=== PATIENT | female | born 1970 | race Caucasian/White ===

== ENCOUNTER 2017-04-30 01:28 | Emergency (ER) | payer OTHER ==
[2017-04-30 01:30] VITALS: O2SAT 100
[2017-04-30] MEDS ORDERED: IOHEXOL 350 MG/ML 10 ML VIAL (for RAD DIAG) IVCONTRAST ONE (01:43)
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
[2017-04-30 02:05] LABS: AUTOMATED NEUTROPHIL # 6.4 TH/MM3 (1.8-7.7); BASOPHIL # 0.1 TH/MM3 (0-0.2); BASOPHIL % 0.9 % (0.0-2.0); EOSINOPHIL # 0.1 TH/MM3 (0-0.4); EOSINOPHIL % 1.2 % (0.0-4.0); HEMATOCRIT 45.6 % (35.0-46.0); HEMOGLOBIN 15.4 GM/DL (11.6-15.3); LYMPH % 36.6 % (9.0-44.0); LYMPHOCYTE # 4.3 TH/MM3 (1.0-4.8); MEAN CORPUSCULAR HEMOGLOBIN 32.4 PG (27.0-34.0); MEAN CORPUSCULAR HGB CONC 33.8 % (32.0-36.0); MEAN PLATELET VOLUME 7.3 FL (7.0-11.0); MONO % 7.6 % (0.0-8.0); MONOCYTE # 0.9 TH/MM3 (0-0.9); NEUT % 53.7 % (16.0-70.0); PLATELET COUNT 381 TH/MM3 (150-450); RED BLOOD COUNT 4.75 MIL/MM3 (4.00-5.30); RED CELL DISTRIBUTION WIDTH 13.7 % (11.6-17.2); WHITE BLOOD COUNT 11.9 TH/MM3 (4.0-11.0)
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
[2017-04-30 02:20] VITALS: O2SAT 100
[2017-04-30 02:22] VITALS: BP 141/81; PULSE 118; RESP 16; O2SAT 100
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
[2017-04-30 02:37] LABS: INTERNATIONAL NORMALIZED RATIO 0.9 RATIO; PROTHROMBIN TIME - PATIENT 9.3 SEC (9.8-11.6)
[2017-04-30] MEDS ORDERED: LIDOCAINE 1%/EPINEPHrine 1:100,000 SOLN 20 ML VIAL INFIL ONE (02:45)
[2017-04-30] MEDS ORDERED: ONDANSETRON HCL 4 MG/2 ML VIAL IV PUSH ONE (02:45)
[2017-04-30] MEDS ORDERED: MORPHINE SULFATE 2 MG/ML INJ IV PUSH ONE (02:45)
[2017-04-30] MEDS ORDERED: LIDOCAINE HCL 1% 20 ML VIAL INFIL ONE (03:00)
[2017-04-30] MEDS ORDERED: BUPIVACAINE HCL PF 0.5% 10 ML VIAL INFIL ONE (03:00)
[2017-04-30] MEDS ORDERED: diphenhydrAMINE HCL 50 MG/ML VIAL ONE (03:45)
[2017-04-30] MEDS ORDERED: HYDR-3516 PO (03:46)
[2017-04-30] MEDS ORDERED: diphenhydrAMINE HCL 50 MG/ML VIAL IV PUSH ONE (04:15)
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
== END 2017-04-30 04:25 | disposition home or self-care (01) ==
LOC: NEPI 01:28 → NEPE 04:25
DX: S01.511A Laceration without foreign body of lip, initial encounter (principal); S09.90XA Unspecified injury of head, initial encounter; M51.36 Other intervertebral disc degeneration, lumbar region; M25.561 Pain in right knee; J45.909 Unspecified asthma, uncomplicated; R00.0 Tachycardia, unspecified; F17.200 Nicotine dependence, unspecified, uncomplicated; V43.63XA Car passenger injured in collision with pick-up truck in traffic accident, initial encounter
CPT/HCPCS: 12052; 70450; 70486; 71010; 71260; 72125; 72129; 72132; 72170; 73560; 74177; 80307; 82435; 82565; 82947; 84132; 84295; 84520; 84702; 85025; 85384; 85610; 85730; 86850; 86900; 86901; 86920; 96374; 96375; 99285; J1200; J2270; J2405; Q9967

== ENCOUNTER 2017-07-06 08:37 | Inpatient (IN) | payer OTHER ==
[2017-07-06] VITALS (20 sets, daily range): BP systolic 115–145; BP diastolic 64–103; PULSE 87–121; RESP 16–26; TEMP 96.8–98.6; O2SAT 93–100
[~2017-07-06] VITALS: Ht 157.5 cm; Wt 87.0 kg
[~2017-07-06 08:37] MED LIST: HYDR-3516 PO
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
[2017-07-06] MEDS ORDERED: PROPOFOL 500 MG/50 ML INJ 50 ML ONE (09:21)
[2017-07-06 09:34] LABS: AUTOMATED NEUTROPHIL # 6.3 TH/MM3 (1.8-7.7); BASOPHIL % 0.4 % (0.0-2.0); EOSINOPHIL # 0.1 TH/MM3 (0-0.4); EOSINOPHIL % 0.9 % (0.0-4.0); HEMATOCRIT 42.5 % (35.0-46.0); HEMOGLOBIN 14.7 GM/DL (11.6-15.3); LYMPH % 26.3 % (9.0-44.0); LYMPHOCYTE # 2.6 TH/MM3 (1.0-4.8); MEAN CORPUSCULAR HEMOGLOBIN 32.8 PG (27.0-34.0); MEAN CORPUSCULAR HGB CONC 34.6 % (32.0-36.0); MONO % 8.1 % (0.0-8.0); MONOCYTE # 0.8 TH/MM3 (0-0.9); NEUT % 64.3 % (16.0-70.0); PLATELET COUNT 358 TH/MM3 (150-450); RED BLOOD COUNT 4.47 MIL/MM3 (4.00-5.30); RED CELL DISTRIBUTION WIDTH 13.8 % (11.6-17.2); WHITE BLOOD COUNT 9.8 TH/MM3 (4.0-11.0)
[2017-07-06] MEDS: SODIUM CHLORIDE 0.9% FLUSH 10 ML FLUSH IV FLUSH PRN (09:35)
[2017-07-06] MEDS: PROPOFOL 1000 MG/100 ML INJ 100 ML IV PRN ×4 (09:36→20:04)
[2017-07-06 09:42] LABS: BILIRUBIN, URINE NEG (NEG); BLOOD, URINE NEG (NEG); GLUCOSE,URINE NEG (NEG); KETONE, URINE NEG (NEG); NITRITE,URINE NEG (NEG); PH, URINE 5.5 (5.0-8.5); URINE COLOR LIGHT-YELLOW (YELLW/STRAW); URINE LEUKOCYTE ESTERASE NEG (NEG)
[2017-07-06 09:45] LABS: BACTERIA, URINE OCC /hpf
--- NOTE | 2017-07-06 09:48 | RADRPT ---
EXAM DATE/TIME: 07/06/2017 09:23 [facility] COMPARISON: CHEST SINGLE AP, April 30, 2017, 1:32. INDICATIONS : Post intubation. MEDICAL HISTORY : None. SURGICAL HISTORY : None. ENCOUNTER: Initial ACUITY: 1 day PAIN SCORE: Non-responsive. LOCATION: Bilateral chest FINDINGS: A single view of the chest demonstrates the lungs to be symmetrically aerated without evidence of mas s, infiltrate or effusion. There is an endotracheal tube and NG tube in place. There is no evidence of pneumothorax. The endotracheal tube appears to be in good position with the tip at the level of th e thoracic aortic arch. The cardiomediastinal contours are unremarkable. Osseous structures are inta ct. CONCLUSION: 1. The endotracheal tube and NG tube appear to be in good position. 2. The lungs are grossly clear. 3. No pneumothorax. Momo Sherman MD on July 06, 2017 at 9:46 Board Certified Radiologist. This report was verified electronically.
[2017-07-06 09:50] LABS: ALBUMIN 4.6 GM/DL (3.4-5.0); AST (GOT) 29 U/L (15-37); BICARBONATE 22.2 MEQ/L (21.0-32.0); BLOOD UREA NITROGEN 8 MG/DL (7-18); CALCIUM 8.1 MG/DL (8.5-10.1); CHLORIDE 106 MEQ/L (98-107); CREATININE 0.91 MG/DL (0.50-1.00); GLOMERULAR FILTRATION RATE 66 ML/MIN (>89); GLUCOSE,RANDOM 64 MG/DL (74-106); SODIUM (NA) 142 MEQ/L (136-145)
[2017-07-06 09:51] LABS: ALT (GPT) 29 U/L (10-53)
[2017-07-06 09:55] LABS: ALKALINE PHOSPHATASE 96 U/L (45-117); TOTAL BILIRUBIN ADULT 0.7 MG/DL (0.2-1.0); TOTAL PROTEIN 7.7 GM/DL (6.4-8.2); TROPONIN I LESS THAN 0.02 NG/ML (0.02-0.05)
--- NOTE | 2017-07-06 10:25 | RADRPT ---
EXAM DATE/TIME: 07/06/2017 10:15 [place] COMPARISON: CT BRAIN W/O CONTRAST, April 30, 2017, 1:38. INDICATIONS : Altered mental status. RADIATION DOSE: 56.35 CTDIvol (mGy) MEDICAL HISTORY : Non-responsive. SURGICAL HISTORY : Non-responsive. ENCOUNTER: Initial ACUITY: 1 day PAIN SCALE: Non-responsive LOCATION: Bilateral cranial TECHNIQUE: Multiple contiguous axial images were obtained of the head. Using automated exposure control and adj ustment of the mA and/or kV according to patient size, radiation dose was kept as low as reasonably a chievable to obtain optimal diagnostic quality images. DICOM format image data is available electro nically for review and comparison. FINDINGS: CEREBRUM: The ventricles are normal for age. No evidence of midline shift, mass lesion, hemorrhage or acute in farction. No extra-axial fluid collections are seen. POSTERIOR FOSSA: The cerebellum and brainstem are intact. The 4th ventricle is midline. The cerebellopontine angle i s unremarkable. EXTRACRANIAL: The visualized portion of the orbits is intact. SKULL: The calvaria is intact. No evidence of skull fracture. CONCLUSION: No acute disease. Silvestre Quinteros Jr., MD on July 06, 2017 at 10:22 Board Certified Radiologist. This report was verified electronically.
[2017-07-06] MEDS ORDERED: MAGNESIUM HYDROXIDE SUSP 30 ML CUP PO PRN (12:00)
[2017-07-06] MEDS ORDERED: SENNOSIDES 8.6 MG TAB PO PRN (12:00)
[2017-07-06] MEDS ORDERED: BISACODYL 10 MG SUPP RECTAL PRN (12:00)
[2017-07-06] MEDS: RESP: ALBUTEROL 2.5 MG/IPRATROPIUM 0.5 MG NEB (SCH) INH ×3 (12:00→21:16)
[2017-07-06] MEDS ORDERED: MISCELLANEOUS NURSING INFORMATION XX SCH (12:00)
[2017-07-06] MEDS ORDERED: CHLORHEXIDINE GLUCONATE 2 % 1 PACK (2 CLOTHS) TOP PRN (12:00)
[2017-07-06] MEDS ORDERED: LACTULOSE SYRUP 20 GM/30 ML CUP PO PRN (12:00)
[2017-07-06] MEDS ORDERED: SODIUM PHOSPHATE INJ 30 MMOL in SODIUM CHLOR 0.9% 250 ML INJ 240 ML IV PRN (12:15)
[2017-07-06] MEDS: INSULIN NovoLIN REGULAR SUPPLEMENTAL SCALE SQ SCH ×4 (12:15→22:56)
[2017-07-06] MEDS ORDERED: SODIUM CHLOR 0.9% 1000 ML INJ 1,000 ML IV ONE (12:15)
[2017-07-06] MEDS ORDERED: POTASSIUM PHOSPHATE MONOBASIC 500 MG TAB PO PRN (12:15)
[2017-07-06] MEDS ORDERED: MAGNESIUM SULFATE INJ 4 GM in SODIUM CHLORIDE 0.9% INJ 92 ML IV PRN (12:15)
[2017-07-06] MEDS ORDERED: POTASSIUM CHLOR 40 MEQ PREMIX 100 ML IV PRN ×2 (12:15)
[2017-07-06] MEDS ORDERED: MAGNESIUM SULFATE INJ 2 GM in SODIUM CHLORIDE 0.9% INJ 96 ML IV PRN (12:15)
[2017-07-06] MEDS ORDERED: DEXTROSE 50% IN WATER 50 ML VIAL(D50) IV PUSH PRN (12:15)
[2017-07-06] MEDS ORDERED: MAGNESIUM OXIDE 400 MG TAB PO PRN (12:15)
[2017-07-06] MEDS ORDERED: POTASSIUM CHLOR 20 MEQ PREMIX 100 ML IV PRN (12:15)
[2017-07-06] MEDS ORDERED: GLUCAGON 1 MG/ML VIAL OTHER PRN (12:15)
[2017-07-06] MEDS ORDERED: POTASSIUM PHOSPHATE MONOBASIC 500 MG TAB PO/TUBE PRN (12:15)
[2017-07-06] MEDS ORDERED: POTASSIUM PHOSPHATE INJ 30 MMOL in SODIUM CHLOR 0.9% 250 ML INJ 250 ML IV PRN (12:15)
--- NOTE | 2017-07-06 12:56 | MH ---
cc: Jaki Mendoza MD DATE OF ADMISSION: 07/06/2017 HISTORY: The patient is a 46-year-old female with a past medical history of bronchial asthma who presented to [facility] ED via EMS for altered mental status. According to the ED records, the patient has been talking about suicide for the last three days and has been drinking a lot. She fell off the boat yesterday and today her significant other found her unresponsive. She was given Narcan by EMS without any effect. The patient was found hypoglycemic and was given D50. She was barely responsive to painful stimuli and she was subsequently intubated in the field for airway protection. A CT scan of the brain in the ED showed no acute disease. Her urine drug screen was positive for benzodiazepines, cocaine and cannabinoids. In addition, her alcohol level was 173. ABG post-intubation showed a pH of 7.38, CO2 39, PaO2 362, bicarb 23 and sats of 96%. A chest x-ray showed ET tube above the rodolfo, otherwise no evidence of any acute cardiopulmonary disease. When seen in the ED, she was on Diprivan infusion for sedation. PAST MEDICAL HISTORY: Bronchial asthma. PAST SURGICAL HISTORY: 1. Nasal surgery. 2. Previous tubal ligation. ALLERGIES: NO KNOWN DRUG ALLERGIES. SOCIAL HISTORY: The patient drinks heavily, active smoker. In addition, she uses cocaine and cannabinoids. FAMILY HISTORY: Not contributing to present illness. MEDICATIONS AT HOME: Prilosec as needed per significant other. REVIEW OF SYSTEMS: As per HPI. The rest of the review of systems unobtainable. PHYSICAL EXAM: This is a 46-year-old female intubated for airway protection. VITAL SIGNS: Temperature of 96.8, pulse 105, blood pressure 121/69, saturation 96%. VENT SETTING: Assist control rate of 18, tidal volume 500, PEEP of 5, FIO2 45%. HEENT: Atraumatic, normocephalic. Pupils equal, round, reactive to light and accommodation. Extraocular muscles intact. Conjunctivae pink. Nonicteric sclerae. Oral mucosa within normal. NECK: Supple. No JVD, adenopathy or thyromegaly. Trachea in the midline. CARDIOVASCULAR: Regular rate and rhythm. Normal S1 and S2. No murmurs, rubs or gallops noted. PULMONARY: Bilateral equal entry. No rales or wheezing. ABDOMEN: Soft, nontender. No distention. Positive bowel sounds. EXTREMITIES: No cyanosis, clubbing or edema. NEURO: Intubated and sedated. LABORATORY DATA: Sodium 142, potassium 3.4, chloride 106, CO2 is 22, BUN 8, creatinine 0.91 and glucose 64. Calcium 8.1. LFTs within normal. Ammonia level 23. Total CK 518. Troponin less than 0.02. WBC 9.8, hemoglobin 14.7, hematocrit 42, platelet count 358. INR 1, PT 10, PTT 23.6. Urine drug screen positive for cocaine, cannabinoids, benzodiazepines. Alcohol level 173. RADIOGRAPHIC STUDIES: CT of the brain negative for acute disease. Chest x-ray: ET tube above the rodolfo. No evidence of any acute cardiopulmonary disease. IMPRESSION: 1. Vent dependent respiratory failure. 2. Altered mental status. 3. Polysubstance abuse. 4. ETOH abuse. 5. Status post hypoglycemic episode. 6. Hypokalemia. 7. Elevated CKs. 8. Questionable suicide attempt. RECOMMENDATIONS: 1. Continue with Diprivan infusion for sedation and daily sedation vacation. 2. Monitor neuro status closely. 3. We will place on thiamine, multivitamins and folic acid. 4. We will consult psychiatry service once extubated. 5. Her urine drug screen in the ER was positive for cannabinoids, cocaine and benzodiazepines. 6. CT scan of the brain negative for acute disease. 7. Continue with vent support and maintain sats above 92%. 8. Bronchodilators in the form of DuoNeb q. 6. 9. We will initiate ____ and start spontaneous breathing trials in the a.m. with sedation vacation. 10. Monitor heart rate and blood pressure closely and maintain a MAP greater than 65 mmHg. 11. Monitor renal function I's and O's and will place on electrolyte replacement protocol. She will need potassium replacement. 12. Place on IV fluids D5 NS at 100 mL/hr and will give 1 L bolus of normal saline. 13. Monitor for signs of infection which includes fever and WBC. We will hold off on antibiotics at this time as there is no evidence of any infectious process. 14. Sliding scale insulin with Accu-Chek if needed for glycemic control. 15. Monitor CBC. 16. Place on Pepcid for GI prophylaxis and start nutrition support within 24 hours if remains intubated. 17. GI prophylaxis with Pepcid and DVT prophylaxis with SCDs and heparin Sub-Q. 18. Further recommendations will be based on the hospital course. MD MAYLIN Johnson/DL/ , 12:14 PM , 12:40 PM
[2017-07-06] MEDS: HEPARIN SODIUM - SQ 10,000 UNITS/ML VIAL SQ SCH ×2 (13:49→22:58)
[2017-07-06] MEDS: THIAMINE HCL 100 MG TAB PO SCH (13:50)
[2017-07-06] MEDS: MULTIVITAMIN TAB PO SCH (13:50)
[2017-07-06] MEDS: FOLIC ACID 1 MG TAB PO SCH (13:50)
[2017-07-06] MEDS: DEXT 5%-NACL 0.9% 1000 ML INJ 1,000 ML IV SCH (13:51)
[2017-07-06] MEDS: POTASSIUM CHLORIDE 25 MEQ EFFERVESCENT TAB PO PRN (16:09)
[2017-07-06] MEDS ORDERED: fentaNYL DRIP 250 ML IV PRN (17:30)
[2017-07-06] MEDS: CHLORHEXIDINE GLUCONATE 2 % 1 PACK (2 CLOTHS) TOP SCH (19:54)
[2017-07-06] MEDS: DOCUSATE SODIUM 50 MG/SENNA 8.6 MG TAB PO SCH (20:04)
[2017-07-06] MEDS: FAMOTIDINE 20 MG/2 ML VIAL IV PUSH SCH (20:05)
[2017-07-07] VITALS (27 sets, daily range): BP systolic 114–168; BP diastolic 63–89; PULSE 87–113; RESP 21–46; TEMP 98.3–99.1; O2SAT 91–100
[2017-07-07] MEDS: PROPOFOL 1000 MG/100 ML INJ 100 ML IV PRN ×3 (00:09→09:41)
[2017-07-07] MEDS: INSULIN NovoLIN REGULAR SUPPLEMENTAL SCALE SQ SCH ×5 (03:08→20:15)
[2017-07-07] MEDS: RESP: ALBUTEROL 2.5 MG/IPRATROPIUM 0.5 MG NEB (SCH) INH ×4 (03:39→19:34)
[2017-07-07 04:25] LABS: AUTOMATED NEUTROPHIL # 9.9 TH/MM3 (1.8-7.7); BASOPHIL % 0.2 % (0.0-2.0); EOSINOPHIL # 0.1 TH/MM3 (0-0.4); EOSINOPHIL % 0.7 % (0.0-4.0); HEMATOCRIT 37.1 % (35.0-46.0); HEMOGLOBIN 12.7 GM/DL (11.6-15.3); LYMPH % 14.4 % (9.0-44.0); LYMPHOCYTE # 1.8 TH/MM3 (1.0-4.8); MEAN CORPUSCULAR HEMOGLOBIN 32.4 PG (27.0-34.0); MEAN CORPUSCULAR HGB CONC 34.1 % (32.0-36.0); MEAN PLATELET VOLUME 6.9 FL (7.0-11.0); MONO % 5.1 % (0.0-8.0); MONOCYTE # 0.6 TH/MM3 (0-0.9); NEUT % 79.6 % (16.0-70.0); PLATELET COUNT 284 TH/MM3 (150-450); WHITE BLOOD COUNT 12.4 TH/MM3 (4.0-11.0)
[2017-07-07 04:43] LABS: BICARBONATE 25.5 MEQ/L (21.0-32.0); CALCIUM 7.9 MG/DL (8.5-10.1); CREATININE 0.85 MG/DL (0.50-1.00); MAGNESIUM 1.9 MG/DL (1.5-2.5)
[2017-07-07 04:54] LABS: PHOSPHORUS 2.8 MG/DL (2.5-4.9)
[2017-07-07] MEDS: POTASSIUM CHLOR 20 MEQ PREMIX 100 ML IV PRN (05:11)
--- NOTE | 2017-07-07 07:46 | EKG ---
Date Performed: 07/06/2017 Time Performed: 08:45:11 PTAGE: 46 years EKG: SINUS TACHYCARDIA Diffuse ST-T abnormality, cannot exclude ischemia ABNORMAL ECG NO PREVIOUS TRACING DOCTOR: Armando Daly Interpretating Date/Time 07/07/2017 07:46:02
[2017-07-07] MEDS: FOLIC ACID 1 MG TAB PO SCH (07:48)
[2017-07-07] MEDS: MULTIVITAMIN TAB PO SCH (07:48)
[2017-07-07] MEDS: FAMOTIDINE 20 MG/2 ML VIAL IV PUSH SCH ×2 (07:48→20:34)
[2017-07-07] MEDS: THIAMINE HCL 100 MG TAB PO SCH (07:48)
[2017-07-07] MEDS: DOCUSATE SODIUM 50 MG/SENNA 8.6 MG TAB PO SCH ×2 (07:48→20:34)
--- NOTE | 2017-07-07 08:12 | HHI.CCPN ---
Subjective Remarks/Hospital Course Patient is a 46-year-old female with a past medical history of bronchial asthma who presented to [facility] ED via EMS for altered mental status. According to the ED records, the patient has been talking about suicide for the last three days and has been drinking a lot. She fell off the boat yesterday and today her significant other found her unresponsive. She was given Narcan by EMS without any effect. The patient was found hypoglycemic and was given D50. She was barely responsive to painful stimuli and she was subsequently intubated in the field for airway protection. A CT scan of the brain in the ED showed no acute disease. Her urine drug screen was positive for benzodiazepines, cocaine and cannabinoids. In addition, her alcohol level was 173. ABG post-intubation showed a pH of 7.38, CO2 39, PaO2 362, bicarb 23 and sats of 96%. A chest x-ray showed ET tube above the rodolfo, otherwise no evidence of any acute cardiopulmonary disease. When seen in the ED, she was on Diprivan infusion for sedation. 07/07 Patient remains sedated and intubated. Afebrile. Objective Vital Signs Date Time Temp Pulse Resp B/P (MAP) Pulse Ox O2 Delivery O2 Flow Rate FiO2 07/07/17 06:00 99 07/07/17 06:00 98.9 25 138/67 (90) 100 07/07/17 04:19 35 07/06/17 13:42 Ventilator Intake and Output 07/07/17 07/07/17 07/07/17 07:59 15:59 23:59 Intake Total 0 ml Output Total 875 ml Balance -875 ml Result Diagram: 07/07/17 0355 07/07/17 0355 Other Results Laboratory Tests Test 07/06/17 08:45 07/06/17 08:50 07/06/17 09:17 07/06/17 15:02 White Blood Count 9.8 TH/MM3 Red Blood Count 4.47 MIL/MM3 Hemoglobin 14.7 GM/DL Hematocrit 42.5 % Mean Corpuscular Volume 95.0 FL Mean Corpuscular Hemoglobin 32.8 PG Mean Corpuscular Hemoglobin Concent 34.6 % Red Cell Distribution Width 13.8 % Platelet Count 358 TH/MM3 Mean Platelet Volume 7.0 FL Neutrophils (%) (Auto) 64.3 % Lymphocytes (%) (Auto) 26.3 % Monocytes (%) (Auto) 8.1 % Eosinophils (%) (Auto) 0.9 % Basophils (%) (Auto) 0.4 % Neutrophils # (Auto) 6.3 TH/MM3 Lymphocytes # (Auto) 2.6 TH/MM3 Monocytes # (Auto) 0.8 TH/MM3 Eosinophils # (Auto) 0.1 TH/MM3 Basophils # (Auto) 0.0 TH/MM3 CBC Comment DIFF FINAL Differential Comment Prothrombin Time 10.0 SEC Prothromb Time International Ratio 1.0 RATIO Activated Partial Thromboplast Time 23.6 SEC Blood Urea Nitrogen 8 MG/DL Creatinine 0.91 MG/DL Random Glucose 64 MG/DL Total Protein 7.7 GM/DL Albumin 4.6 GM/DL Calcium Level 8.1 MG/DL Alkaline Phosphatase 96 U/L Aspartate Amino Transf (AST/SGOT) 29 U/L Alanine Aminotransferase (ALT/SGPT) 29 U/L Total Bilirubin 0.7 MG/DL Sodium Level 142 MEQ/L Potassium Level 3.4 MEQ/L Chloride Level 106 MEQ/L Carbon Dioxide Level 22.2 MEQ/L Anion Gap 14 MEQ/L Estimat Glomerular Filtration Rate 66 ML/MIN Phosphorus Level 1.4 MG/DL Ammonia 23 MCMOL/L Total Creatine Kinase 518 U/L Creatine Kinase MB 2.5 NG/ML Creatine Kinase MB % 0.5 % Troponin I LESS THAN 0.02 NG/ML Ethyl Alcohol Level 173 MG/DL Urine Color LIGHT-YELLOW Urine Turbidity CLEAR Urine pH 5.5 Urine Specific [place] 1.017 Urine Protein 30 mg/dL Urine Glucose (UA) NEG mg/dL Urine Ketones NEG mg/dL Urine Occult Blood NEG Urine Nitrite NEG Urine Bilirubin NEG Urine Urobilinogen LESS THAN 2.0 MG/DL Urine Leukocyte Esterase NEG Urine RBC 4 /hpf Urine WBC 4 /hpf Urine Bacteria OCC /hpf Microscopic Urinalysis Comment CATH-CULTURE IND Urine Opiates Screen NEG Urine Barbiturates Screen NEG Urine Amphetamines Screen NEG Urine Benzodiazepines Screen POS Urine Cocaine Screen POS Urine Cannabinoids Screen POS Blood Gas Puncture Site RT RADIAL Blood Gas Patient Temperature 96.8 Blood Gas HCO3 23 mmol/L Blood Gas Base Excess -1.9 mmol/L Blood Gas Oxygen Saturation 96 % Arterial Blood pH 7.38 Arterial Blood Partial Pressure CO2 39 mmHg Arterial Blood Partial Pressure O2 362 mmHG Arterial Blood Oxygen Content 20.3 Vol % Arterial Blood Carboxyhemoglobin 2.5 % Arterial Blood Methemoglobin 0.8 % Blood Gas Hemoglobin 14.3 G/DL Oxygen Delivery Device VENT Blood Gas Ventilator Setting AC/18/500/PEEP5 Blood Gas Inspired Oxygen 100 % Nasal Screen MRSA (PCR) MRSA NOT DETECTED Test 07/07/17 03:55 White Blood Count 12.4 TH/MM3 Red Blood Count 3.90 MIL/MM3 Hemoglobin 12.7 GM/DL Hematocrit 37.1 % Mean Corpuscular Volume 95.0 FL Mean Corpuscular Hemoglobin 32.4 PG Mean Corpuscular Hemoglobin Concent 34.1 % Red Cell Distribution Width 14.0 % Platelet Count 284 TH/MM3 Mean Platelet Volume 6.9 FL Neutrophils (%) (Auto) 79.6 % Lymphocytes (%) (Auto) 14.4 % Monocytes (%) (Auto) 5.1 % Eosinophils (%) (Auto) 0.7 % Basophils (%) (Auto) 0.2 % Neutrophils # (Auto) 9.9 TH/MM3 Lymphocytes # (Auto) 1.8 TH/MM3 Monocytes # (Auto) 0.6 TH/MM3 Eosinophils # (Auto) 0.1 TH/MM3 Basophils # (Auto) 0.0 TH/MM3 CBC Comment DIFF FINAL Differential Comment Blood Urea Nitrogen 8 MG/DL Creatinine 0.85 MG/DL Random Glucose 92 MG/DL Calcium Level 7.9 MG/DL Phosphorus Level 2.8 MG/DL Magnesium Level 1.9 MG/DL Sodium Level 143 MEQ/L Potassium Level 3.3 MEQ/L Chloride Level 110 MEQ/L Carbon Dioxide Level 25.5 MEQ/L Anion Gap 8 MEQ/L Estimat Glomerular Filtration Rate 72 ML/MIN Imaging Last Impressions Head CT 07/06/17840 Signed Impressions: Service Date/Time: Thursday, July 06, 2017 10:15 - CONCLUSION: No acute disease. Silvestre Quinteros Jr., MD Chest X-Ray 07/06/17840 Signed Impressions: Service Date/Time: Thursday, July 06, 2017 09:23 - CONCLUSION: 1. The endotracheal tube and NG tube appear to be in good position. 2. The lungs are grossly clear. 3. No pneumothorax. Momo Sherman MD Objective Remarks GENERAL: Patient is 46 yo intubated and sedated SKIN: Warm and dry. HEAD: Normocephalic. EYES: No scleral icterus. No injection or drainage. NECK: Supple, trachea midline. No JVD or lymphadenopathy. CARDIOVASCULAR: Regular rate and rhythm without murmurs, gallops, or rubs. RESPIRATORY: Breath sounds equal bilaterally. No accessory muscle use. GASTROINTESTINAL: Abdomen soft, non-tender, nondistended. MUSCULOSKELETAL: No cyanosis, or edema. Neuro; sedated A/P Assessment and Plan 1. Vent dependent respiratory failure. 2. Altered mental status. 3. Polysubstance abuse. 4. ETOH abuse. 5. Status post hypoglycemic episode. 6. Hypokalemia. 7. Elevated CKs. 8. Questionable suicide attempt. Plan Neuro: On Diprivan/Fentanyl infusion for sedation and daily sedation vacation. Monitor neuro status, on thiamine, multivitamins and folic acid. Consult psychiatry service once extubated. UDS: positive for cannabinoids, cocaine and benzodiazepines. CT brain negative for acute disease. Pulm: Continue with vent support and maintain sats above 92%. Bronchodilators, ICU vent bundle, SBT as merlene and possible extubation yesterday CV: Monitor HR and BP and maintain a MAP >65 mmHg. : Monitor renal function I's and O's electrolyte replacement protocol. On D5 NS at 100 mL/hr. Will need K replacement today GI: On Pepcid for GI prophylaxis, start tube feeds today if remains intubated ID: Monitor for signs of infections( fever and WBC) Follow up on blood and urine cxs Endo: SSI with Accu-Chek if needed for glycemic control. Heme: Monitor CBC. GI prophylaxis with Pepcid and DVT prophylaxis with SCDs and heparin Sub-Q. Addendum: Patient is extubated and is on 4L oxygen Psych consulted. Will sign off and transfer care to Jaki Ramirez MD Jul 07, 2017 08:12
[2017-07-07] MEDS: DEXT 5%-NACL 0.9% 1000 ML INJ 1,000 ML IV SCH (08:15)
[2017-07-07] MEDS ORDERED: DEXMEDETOMIDINE INJ 200 MCG in SODIUM CHLORIDE 0.9% INJ 50 ML IV PRN (10:45)
--- NOTE | 2017-07-07 14:58 | PD.PSY.CON ---
Provisional Diagnosis Admission Date Jul 06, 2017 at 11:15 History of Present Illness Service Psychiatry Consult Requested By Critical care Reason for Consult Suicidal attempts Primary Care Physician Unknown Past Family Social History Coded Allergies: No Known Allergies (Unverified Allergy, Unknown, 07/06/17) Active Scripts Hydrocodone-Acetaminophen (Hydrocodone-Acetaminophen) 5-325 mg Tab, 1 TAB PO Q6H Y for PAIN, #16 TAB 0 Refills Prov:Yas Daly MD 04/30/17 Current Medications Medications (Trade) Dose Ordered Sig/Alberto Route Start Time Stop Time Status Last Admin (NS Flush) 2 ml UNSCH PRN IV FLUSH 07/06/17 08:45 07/06/17 09:35 Propofol 100 ml @ 0 mls/hr TITRATE PRN IV 07/06/17 09:30 07/07/17 09:41 (Pepcid Inj) 20 mg Q12HR IV PUSH 07/06/17 21:00 07/07/17 07:48 (Duoneb Neb) 1 ampule Q6HR NEB INH 07/06/17 12:00 07/07/17 08:24 (Heparin Inj) 5,000 units Q12H SQ 07/06/17 13:00 07/06/17 22:58 Miscellaneous Information 1 Q361D XX 07/06/17 12:00 (Chlorhexidine 2% Cloth) 3 pack Taper DAILY@04 TOP 07/07/17 04:00 07/03/18 03:59 07/06/17 19:54 (Chlorhexidine 2% Cloth) 3 pack UNSCH PRN TOP 07/06/17 12:00 (Yarely-Colace) 1 tab BID PO 07/06/17 21:00 07/07/17 07:48 (Milk Of Magnesia Liq) 30 ml Q12H PRN PO 07/06/17 12:00 (Senokot) 17.2 mg Q12H PRN PO 07/06/17 12:00 (Dulcolax Supp) 10 mg DAILY PRN RECTAL 07/06/17 12:00 (Lactulose Liq) 30 ml DAILY PRN PO 07/06/17 12:00 Dextrose/Sodium Chloride 1,000 ml @ 100 mls/hr Q10H IV 07/06/17 12:15 07/07/17 08:15 (Vitamin B1) 100 mg DAILY PO 07/06/17 12:15 07/07/17 07:48 (Theragran) 1 tab DAILY PO 07/06/17 12:15 07/07/17 07:48 (Folate) 1 mg DAILY PO 07/06/17 12:15 07/07/17 07:48 Potassium Chloride 100 ml @ 50 mls/hr Q2H PRN IV 07/06/17 12:15 Potassium Chloride 100 ml @ 50 mls/hr Q2H PRN IV 07/06/17 12:15 (K-Lyte Cl Eff) 50 meq UNSCH PRN PO 07/06/17 12:15 07/06/17 16:09 Potassium Chloride 100 ml @ 25 mls/hr UNSCH PRN IV 07/06/17 12:15 Potassium Chloride 100 ml @ 50 mls/hr Q2H PRN IV 07/06/17 12:15 07/07/17 05:11 Magnesium Sulfate 4 gm/Sodium Chloride 100 ml @ 50 mls/hr UNSCH PRN IV 07/06/17 12:15 (Mag-Ox) 800 mg UNSCH PRN PO 07/06/17 12:15 Magnesium Sulfate 2 gm/Sodium Chloride 100 ml @ 50 mls/hr UNSCH PRN IV 07/06/17 12:15 (K-Phos) 2,000 mg Q4H PRN PO 07/06/17 12:15 Sodium Phosphate 30 mmol/Sodium Chloride 250 ml @ 42 mls/hr UNSCH PRN IV 07/06/17 12:15 (K-Phos) 2,000 mg UNSCH PRN PO/TUBE 07/06/17 12:15 Potassium Phosphate 30 mmol/ Sodium Chloride 260 ml @ 42 mls/hr UNSCH PRN IV 07/06/17 12:15 07/06/17 16:08 (D50w (Vial) Inj) 50 ml UNSCH PRN IV PUSH 07/06/17 12:15 (Glucagon Inj) 1 mg UNSCH PRN OTHER 07/06/17 12:15 (NovoLIN R SUPPLEMENTAL SCALE) 1 Q4H SQ 07/06/17 12:15 Physical Exam Vital Signs Vital Signs Date Time Temp Pulse Resp B/P (MAP) Pulse Ox O2 Delivery O2 Flow Rate FiO2 07/07/17 14:00 100 07/07/17 14:00 98.7 23 138/66 (90) 96 07/07/17 13:44 Nasal Cannula 4.00 07/07/17 12:00 35 I/O 07/07/17 07/07/17 07/08/17 08:00 16:00 00:00 Intake Total 100 ml 1180.6 ml Output Total 875 ml Balance -775 ml 1180.6 ml Lab Results Test 07/06/17 15:02 07/07/17 03:55 07/07/17 12:00 Nasal Screen MRSA (PCR) MRSA NOT DETECTED White Blood Count 12.4 TH/MM3 Red Blood Count 3.90 MIL/MM3 Hemoglobin 12.7 GM/DL Hematocrit 37.1 % Mean Corpuscular Volume 95.0 FL Mean Corpuscular Hemoglobin 32.4 PG Mean Corpuscular Hemoglobin Concent 34.1 % Red Cell Distribution Width 14.0 % Platelet Count 284 TH/MM3 Mean Platelet Volume 6.9 FL Neutrophils (%) (Auto) 79.6 % Lymphocytes (%) (Auto) 14.4 % Monocytes (%) (Auto) 5.1 % Eosinophils (%) (Auto) 0.7 % Basophils (%) (Auto) 0.2 % Neutrophils # (Auto) 9.9 TH/MM3 Lymphocytes # (Auto) 1.8 TH/MM3 Monocytes # (Auto) 0.6 TH/MM3 Eosinophils # (Auto) 0.1 TH/MM3 Basophils # (Auto) 0.0 TH/MM3 CBC Comment DIFF FINAL Differential Comment Blood Urea Nitrogen 8 MG/DL Creatinine 0.85 MG/DL Random Glucose 92 MG/DL Calcium Level 7.9 MG/DL Phosphorus Level 2.8 MG/DL Magnesium Level 1.9 MG/DL Sodium Level 143 MEQ/L Potassium Level 3.3 MEQ/L Chloride Level 110 MEQ/L Carbon Dioxide Level 25.5 MEQ/L Anion Gap 8 MEQ/L Estimat Glomerular Filtration Rate 72 ML/MIN Blood Gas Puncture Site RT RADIAL Blood Gas Patient Temperature 98.6 Venous Blood pH 7.39 Venous Blood Partial Pressure CO2 41 mmHg Venous Blood Partial Pressure O2 42 mmHg Venous Blood HCO3 24 mmol/L Venous Blood Oxygen Saturation 78 % Venous Blood Oxygen Content 13.0 Vol % Venous Blood Base Excess -0.1 mmol/L Oxygen Delivery Device VENTILATOR Blood Gas Ventilator Setting CPAP: 10/+5/40% Blood Gas Inspired Oxygen 40 % Date/Time Source Procedure Growth Status 07/06/17 09:00 Blood Peripheral Aerobic Blood Culture - Preliminary NO GROWTH IN 1 DAY Resulted 07/06/17 09:00 Blood Peripheral Anaerobic Blood Culture - Preliminary NO GROWTH IN 1 DAY Resulted 07/06/17 08:50 Urine Catheterized Urine Urine Culture - Preliminary NO GROWTH IN 24 HOURS. Resulted Assessment & Plan Problem List: (1) Endotracheally intubated ICD Codes: Z97.8 - Presence of other specified devices Status: Acute Assessment & Plan: Patient is intubated, unable to participate in a psychiatric assessment at this moment. Will revisit the patient once patient is able to cooperate. Assessment & Plan Estimated LOS: Checo Barkley MD Jul 07, 2017 14:58
[2017-07-07] MEDS: HEPARIN SODIUM - SQ 10,000 UNITS/ML VIAL SQ SCH (15:43)
[2017-07-08] VITALS (19 sets, daily range): BP systolic 139–154; BP diastolic 85–96; PULSE 92–110; RESP 23–38; TEMP 98.7–99.9; O2SAT 87–99
[2017-07-08] MEDS: INSULIN NovoLIN REGULAR SUPPLEMENTAL SCALE SQ SCH ×6 (00:15→20:15)
[2017-07-08] MEDS: HEPARIN SODIUM - SQ 10,000 UNITS/ML VIAL SQ SCH ×2 (00:18→13:26)
[2017-07-08] MEDS: RESP: ALBUTEROL 2.5 MG/IPRATROPIUM 0.5 MG NEB (SCH) INH ×4 (03:32→20:27)
[2017-07-08] MEDS: CHLORHEXIDINE GLUCONATE 2 % 1 PACK (2 CLOTHS) TOP SCH (03:37)
[2017-07-08] MEDS: DEXT 5%-NACL 0.9% 1000 ML INJ 1,000 ML IV SCH ×3 (04:10→14:15)
[2017-07-08 04:25] LABS: AUTOMATED NEUTROPHIL # 7.7 TH/MM3 (1.8-7.7); BASOPHIL % 0.4 % (0.0-2.0); EOSINOPHIL # 0.1 TH/MM3 (0-0.4); HEMATOCRIT 32.8 % (35.0-46.0); HEMOGLOBIN 11.3 GM/DL (11.6-15.3); LYMPHOCYTE # 1.8 TH/MM3 (1.0-4.8); MEAN CELL VOLUME 94.6 FL (80.0-100.0); MEAN CORPUSCULAR HEMOGLOBIN 32.7 PG (27.0-34.0); MEAN CORPUSCULAR HGB CONC 34.6 % (32.0-36.0); MEAN PLATELET VOLUME 7.4 FL (7.0-11.0); MONO % 4.7 % (0.0-8.0); MONOCYTE # 0.5 TH/MM3 (0-0.9); NEUT % 75.9 % (16.0-70.0); PLATELET COUNT 254 TH/MM3 (150-450); RED BLOOD COUNT 3.46 MIL/MM3 (4.00-5.30); RED CELL DISTRIBUTION WIDTH 13.8 % (11.6-17.2); WHITE BLOOD COUNT 10.1 TH/MM3 (4.0-11.0)
[2017-07-08 04:53] LABS: BICARBONATE 27.7 MEQ/L (21.0-32.0); CALCIUM 8.1 MG/DL (8.5-10.1); CREATININE 0.76 MG/DL (0.50-1.00); MAGNESIUM 1.8 MG/DL (1.5-2.5)
[2017-07-08 04:54] LABS: PHOSPHORUS 1.7 MG/DL (2.5-4.9)
[2017-07-08] MEDS: POTASSIUM CHLORIDE 25 MEQ EFFERVESCENT TAB PO PRN (05:37)
[2017-07-08] MEDS: THIAMINE HCL 100 MG TAB PO SCH (09:28)
[2017-07-08] MEDS: MULTIVITAMIN TAB PO SCH (09:28)
[2017-07-08] MEDS: FOLIC ACID 1 MG TAB PO SCH (09:28)
[2017-07-08] MEDS: SODIUM CHLORIDE 0.9% FLUSH 10 ML FLUSH IV FLUSH PRN (09:28)
[2017-07-08] MEDS: FAMOTIDINE 20 MG/2 ML VIAL IV PUSH SCH ×2 (09:28→22:16)
[2017-07-08] MEDS: DOCUSATE SODIUM 50 MG/SENNA 8.6 MG TAB PO SCH ×2 (09:28→22:16)
--- NOTE | 2017-07-08 12:29 | HHI.PR ---
Subjective Remarks Follow-up for acute encephalopathy, substance abuse, respiratory failure. Patient is currently resting in bed, currently on nasal cannula. No acute concerns. Denies any chest pain, shortness of breath, fever or chills. Tolerating diet well. She denies any suicidal or homicidal ideations. Objective Vitals Vital Signs Date Time Temp Pulse Resp B/P (MAP) Pulse Ox O2 Delivery O2 Flow Rate FiO2 07/08/17 10:11 94 Nasal Cannula 3.00 07/08/17 06:00 96 07/08/17 04:00 95 07/08/17 04:00 99.2 95 26 152/90 (110) 95 07/08/17 02:00 100 07/08/17 00:00 98.7 104 24 152/90 (110) 87 07/08/17 00:00 104 07/07/17 22:00 102 07/07/17 20:00 99.1 105 29 157/88 (111) 97 07/07/17 20:00 105 07/07/17 19:34 100 Nasal Cannula 4.00 07/07/17 18:00 106 07/07/17 18:00 98.5 106 37 157/88 (111) 95 07/07/17 17:00 105 28 143/89 (107) 96 07/07/17 16:00 98.9 98 27 141/71 (94) 97 07/07/17 16:00 98 07/07/17 15:00 98.9 99 24 152/72 (98) 96 07/07/17 14:00 100 07/07/17 14:00 98.7 100 23 138/66 (90) 96 07/07/17 13:44 94 Nasal Cannula 4.00 07/07/17 13:00 98.7 113 168/75 (106) 91 07/07/17 13:00 98.7 113 46 168/75 (106) 91 07/07/17 12:37 96 Nasal Cannula 4 07/07/17 12:30 96 Nasal Cannula 4.00 I/O 07/07/17 07/07/17 07/07/17 07/08/17 07/08/17 07/08/17 07:00 15:00 23:00 07:00 15:00 23:00 Intake Total 100 ml 1180.6 ml 1450 ml Output Total 875 ml 650 ml 850 ml Balance -775 ml 1180.6 ml -650 ml 600 ml Intake Oral 0 ml 350 ml IV Total 100 ml 1180.6 ml 1100 ml Output Urine Total 575 ml 650 ml 850 ml Gastric Drainage Total 300 ml Result Diagram: 07/08/17 0323 07/08/17 0323 Imaging Last Impressions Head CT 07/06/17840 Signed Impressions: Service Date/Time: Thursday, July 06, 2017 10:15 - CONCLUSION: No acute disease. Silvestre Quinteros Jr., MD Chest X-Ray 07/06/17840 Signed Impressions: Service Date/Time: Thursday, July 06, 2017 09:23 - CONCLUSION: 1. The endotracheal tube and NG tube appear to be in good position. 2. The lungs are grossly clear. 3. No pneumothorax. Momo Sherman MD A/P Problem List: (1) Acute respiratory failure ICD Code: J96.00 - Acute respiratory failure, unspecified whether with hypoxia or hypercapnia (2) Polysubstance (excluding opioids) dependence ICD Code: F19.20 - Other psychoactive substance dependence, uncomplicated Assessment and Plan Ms. Fuller is a pleasant 46-year-old female with a history of bronchial asthma who was admitted on 07/06/2017 due to acute encephalopathy. Apparently in the previous ED visits there was some discussion regarding suicidal attempts. She currently fell off the boot the day before this admission and on the day of admission boyfriend found her unresponsive. Patient was given Narcan by EMS service. Her urine drug screen was positive for benzodiazepines, cocaine and cannabinoids. She was extubated on 07/07/2017. -Acute toxic encephalopathy -likely due to substance abuse. Currently resolved. -Acute respiratory failure -extubated on 07/07/2017. Currently stable -Patient is currently on nasal cannula oxygen. We will try to wean her off supplemental oxygen. -Continue DuoNeb as needed -Mild hypokalemia -Discussed with RN regarding potassium replacement. Medicine is also slightly low, will replace with IV magnesium -Questionable suicidal attempt -Patient denies any suicidal attempts. Psychiatry evaluated patient today. Recommended no involuntary admission. Full code. Heparin SQ. Discharge plan: If patient remains hemodynamically stable and off oxygen, will consider discharging patient home on 07/09/2017. Antonio Flannery DO Jul 08, 2017 12:29
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
[2017-07-08] MEDS ORDERED: diphenhydrAMINE HCL 50 MG CAP PO ONE (22:45)
[2017-07-08] MEDS: NICOTINE 21 MG/24 HR PATCH T-DERMAL SCH (22:58)
[2017-07-09] VITALS (7 sets, daily range): BP systolic 145–155; BP diastolic 93–95; PULSE 104–109; RESP 26–37; TEMP 99.8–100.2; O2SAT 93
[2017-07-09] MEDS: INSULIN NovoLIN REGULAR SUPPLEMENTAL SCALE SQ SCH ×3 (00:15→08:15)
[2017-07-09] MEDS: DEXT 5%-NACL 0.9% 1000 ML INJ 1,000 ML IV SCH (02:07)
[2017-07-09] MEDS: HEPARIN SODIUM - SQ 10,000 UNITS/ML VIAL SQ SCH (02:07)
[2017-07-09] MEDS: RESP: ALBUTEROL 2.5 MG/IPRATROPIUM 0.5 MG NEB (SCH) INH ×2 (03:56→10:00)
[2017-07-09] MEDS: CHLORHEXIDINE GLUCONATE 2 % 1 PACK (2 CLOTHS) TOP SCH (04:00)
[2017-07-09] MEDS ORDERED: ACETAMINOPHEN 325 MG TAB PO ONE (05:15)
[2017-07-09] MEDS ORDERED: RESP: ALBUTEROL 2.5 MG/3 ML NEB (PRN) NEB (05:30)
--- NOTE | 2017-07-09 06:13 | RADRPT ---
EXAM DATE/TIME: 07/09/2017 05:20 [facility] COMPARISON: CHEST SINGLE AP, July 06, 2017, 9:23. INDICATIONS : Fever. MEDICAL HISTORY : None. SURGICAL HISTORY : None. ENCOUNTER: Subsequent ACUITY: 3 days PAIN SCORE: 0/10 LOCATION: Bilateral chest FINDINGS: A single view of the chest demonstrates the lungs to be symmetrically aerated without evidence of mas s, infiltrate or effusion. The cardiomediastinal contours are unremarkable. Osseous structures are intact. Endotracheal tube and nasogastric tube have been. CONCLUSION: No acute cardiopulmonary disease demonstrated. Patient extubated in the interim. Glenroy Ang MD on July 09, 2017 at 6:11 Board Certified Radiologist. This report was verified electronically.
[2017-07-09 08:03] LABS: BACTERIA, URINE MANY /hpf; BILIRUBIN, URINE NEG (NEG); BLOOD, URINE SMALL (NEG); GLUCOSE,URINE NEG (NEG); KETONE, URINE NEG (NEG); NITRITE,URINE POS (NEG); PH, URINE 7.5 (5.0-8.5); SQUAMOUS EPITHELIAL CELL URINE 5 /hpf (0-5); URINE COLOR LIGHT-YELLOW (YELLW/STRAW); URINE LEUKOCYTE ESTERASE LARGE (NEG); WHITE BLOOD CELL CLUMPS MANY
[2017-07-09] MEDS: NICOTINE 21 MG/24 HR PATCH T-DERMAL SCH (08:43)
[2017-07-09] MEDS: MULTIVITAMIN TAB PO SCH (08:44)
[2017-07-09] MEDS: FOLIC ACID 1 MG TAB PO SCH (08:44)
[2017-07-09] MEDS: THIAMINE HCL 100 MG TAB PO SCH (08:44)
[2017-07-09] MEDS: DOCUSATE SODIUM 50 MG/SENNA 8.6 MG TAB PO SCH (08:44)
[2017-07-09] MEDS: FAMOTIDINE 20 MG/2 ML VIAL IV PUSH SCH (08:44)
[2017-07-09] MEDS ORDERED: THIA100 PO (10:46)
[2017-07-09] MEDS ORDERED: FOLI1TAB6 PO (10:46)
[2017-07-09] MEDS ORDERED: THERTAB15 PO (10:46)
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
[2017-07-09] MEDS ORDERED: REMOVE OLD PATCH T-DERMAL SCH (21:00)
== END 2017-07-09 11:30 | disposition home or self-care (01) | DRG 208 ==
LOC: NEPC 08:37 → NEDA 11:15 → HIMW 14:54
PROVIDERS: ADMIT Hospitalist; ATTEND Hospitalist
PROC: 5A1945Z Respiratory Ventilation, 24-96 Consecutive Hours (ICD-10-PCS; principal; 2017-07-06)
DX: J96.00 Acute respiratory failure, unspecified whether with hypoxia or hypercapnia (principal); G92 Toxic encephalopathy; F14.229 Cocaine dependence with intoxication, unspecified; E16.2 Hypoglycemia, unspecified; F17.200 Nicotine dependence, unspecified, uncomplicated; J45.909 Unspecified asthma, uncomplicated; R00.0 Tachycardia, unspecified; E87.6 Hypokalemia; I10 Essential (primary) hypertension; F10.229 Alcohol dependence with intoxication, unspecified; F13.229 Sedative, hypnotic or anxiolytic dependence with intoxication, unspecified; F12.229 Cannabis dependence with intoxication, unspecified; Y90.6 Blood alcohol level of 120-199 mg/100 ml
CPT/HCPCS: 36600; 43752; 51702; 70450; 71045; 80048; 80053; 80307; 81001; 82140; 82550; 82552; 82805; 82948; 83735; 84100; 84484; 84703; 85025; 85610; 85730; 87040; 87077; 87086; 87186; 87641; 93005; 94002; 94003; 94150; 94640; 94664; 96365; J1644; J3010; J3480; J7030; J7042; J7050; Q0163

== ENCOUNTER 2017-08-27 09:05 | Emergency (ER) | payer SELFPAY ==
[~2017-08-27] VITALS: Ht 170.2 cm; Wt 84.0 kg
[~2017-08-27 09:05] MED LIST changes: +FOLI1TAB6 PO; +THERTAB15 PO; +THIA100 PO
[2017-08-27 09:14] VITALS: BP 138/65; PULSE 122; RESP 16; TEMP 100.1; O2SAT 96
--- NOTE | 2017-08-27 09:35 | PD ---
HPI Chief Complaint: ENT Complaint Time Seen by Provider: 09:25 Travel History International Travel<30 days: No Contact w/Intl Traveler<30days: No Traveled to known affect area: No History of Present Illness HPI 46-year-old female presents to the emergency department for evaluation of sore throat and fever. She states her symptoms started 2 days ago. She states it is difficult to swallow due to the pain. Patient states her fever was up to 103 last night. She has not taken anything for her fever. She has no chronic medical problems and takes no prescribed medications. She denies reported she had hysterectomy in the past. Current pain is 10/10 to the throat with radiation to the left ear. Pain is aching. Moderate severity. PFSH Past Medical History Hx Anticoagulant Therapy: No Cancer: No Cardiovascular Problems: No Chemotherapy: No Cerebrovascular Accident: No Diabetes: No Diminished Hearing: No (UNABLE TO ASSESS) Hepatitis: No Hiatal Hernia: No Medical other: Yes (hx of anemia) Respiratory: No Thyroid Disease: No Influenza Vaccination: No ?: Not Past Surgical History Gynecologic Surgery: Yes (tubal) Hysterectomy: Yes Other Surgery: Yes Social History Alcohol Use: Yes (occas) Tobacco Use: Yes (1-1/2 packs per day) Substance Use: No Allergies-Medications (Allergen,Severity, Reaction): Coded Allergies: No Known Allergies (Unverified Allergy, Unknown, 08/27/17) Reported Meds & Prescriptions Reported Meds & Active Scripts Active Review of Systems Except as stated in HPI: all other systems reviewed are Neg Physical Exam Narrative GENERAL: Well-nourished, well-developed female patient, afebrile SKIN: Focused skin assessment warm/dry. ENT: Mucosa pink and moist. Bilateral tonsils are erythematous with exudate. No uvular edema. No uvular, palatal, or tonsillar deviation. Airway patent. Nasal turbinates appear normal without nasal blood, purulent drainage or septal hematoma. Bilateral tympanic membranes clear without erythema or perforation. HEAD: Normocephalic. Atraumatic EYES: No scleral icterus. No injection or drainage. NECK: Supple, trachea midline. No JVD or lymphadenopathy. CARDIOVASCULAR: Regular rate and rhythm without murmurs, gallops, or rubs. RESPIRATORY: Breath sounds equal bilaterally. No accessory muscle use. Lung sounds expiratory wheezes noted throughout GASTROINTESTINAL: Abdomen soft, non-tender, nondistended. MUSCULOSKELETAL: No cyanosis, or edema. BACK: Nontender without obvious deformity. No CVA tenderness. Data Data Last Documented VS Vital Signs Date Time Temp Pulse Resp B/P (MAP) Pulse Ox O2 Delivery O2 Flow Rate FiO2 08/27/17 10:18 99.6 116 18 112/58 (76) 95 Room Air Orders Orders Ibuprofen Liq (Motrin Liq) (08/27/17 09:45) Dexamethasone Inj (Decadron Inj) (08/27/17 09:45) Albuterol-Ipratropium Neb (Duoneb Neb) (08/27/17 09:45) Chest, Pa & Lat (08/27/17 ) MDM Medical Decision Making Medical Screen Exam Complete: Yes Emergency Medical Condition: Yes Medical Record Reviewed: Yes Interpretation(s) Last Impressions Chest X-Ray 08/27/17 0000 Signed Impressions: Service Date/Time: Wednesday, August 27, 2017 09:40 - CONCLUSION: No acute disease. Dimitri Dutta MD Differential Diagnosis Strep pharyngitis versus viral pharyngitis versus URI versus pneumonia Narrative Course 46-year-old female presents to the emergency department for evaluation of sore throat and fever. On exam, she has extra wheezes noted throughout. She reports history of wheezing due to smoking and uses albuterol inhaler home. However, she states she has been able to use it and has been unable to cough due to her sore throat. On exam, bilateral tonsils have exudates, no tonsillar swelling or deviation. Patient is given DuoNeb 3, dexamethasone 8 mg IM. She is given ibuprofen 800 mg p.o. Chest x-ray is ordered and pending. Chest x-ray shows no acute disease. Upon recheck, patient states she feels much better. Lung sounds are now clear to auscultation. She would like to go home. She is requesting prescription for Diflucan. She states that she normally gets yeast infections after taking antibiotics. She will be discharged a prescription for Pen-Vee K, Diflucan, prednisone, albuterol inhaler. She states that she is almost out of her albuterol inhaler at home. She has felt her primary care physician return here for any acute worsening of symptoms. She verbalizes agreement and understanding. The patient was discharged in stable condition with instructions, including return instructions and follow up instructions. Diagnosis Primary Impression: Exudative pharyngitis Additional Impression: Bronchitis with bronchospasm Referrals: Primary Care Physician call for appointment Patient Instructions: General Instructions, Strep Throat (ED) Departure Forms: Tests/Procedures, Work Release Enter return to work date: Aug 30, 2017 Additional Instructions: Take antibiotic as directed until gone. Take prednisone as directed. Start this tomorrow. Take Diflucan as needed for yeast infection. Use albuterol inhaler as directed as needed for shortness of breath/wheezing. Follow-up with a primary care physician. Return to the emergency department for any acute worsening of symptoms. Med/Other Pt SpecificInfo: Prescription(s) given Scripts Albuterol 18 GM Inh (Ventolin Hfa 18 GM Inh) 90 Mcg/Act Aer 1 PUFF INH Q4H Y for SHORTNESS OF BREATH, #1 INHALER 0 Refills Prov: Helena Velasquez 08/27/17 Prednisone (Prednisone) 20 Mg Tab 40 MG PO DAILY, #10 TAB 0 Refills Take 40 mg (2 tablets) daily for 5 days Prov: Helena Velasquez 08/27/17 Fluconazole (Diflucan) 150 Mg Tab 150 MG PO ONCE for Infection, #1 TAB 0 Refills Prov: Helena Velasquez 08/27/17 Penicillin V Potassium Liq (Penicillin V Potassium Liq) 250 Mg/5 Ml Soln 500 MG PO Q8H for Infection for 10 Days, #300 ML 0 Refills Prov: Helena Velasquez 08/27/17 Disposition: 01 DISCHARGE HOME Condition: Stable Helena Velasquez Aug 27, 2017 09:35
[2017-08-27] MEDS: RESP: ALBUTEROL 2.5 MG/IPRATROPIUM 0.5 MG NEB (SCH) INH ×2 (09:41→09:42)
[2017-08-27] MEDS ORDERED: IBUPROFEN SUSP 100 MG/5 ML UDC PO ONE (09:45)
[2017-08-27] MEDS ORDERED: DEXAMETHASONE SOD PHOS 4 MG/ML VIAL IM ONE (09:45)
[2017-08-27 10:18] VITALS: BP 112/58; PULSE 116; RESP 18; TEMP 99.6; O2SAT 95
--- NOTE | 2017-08-27 10:31 | RADRPT ---
EXAM DATE/TIME: 08/27/2017 09:40 [facility] COMPARISON: No previous studies available for comparison. INDICATIONS : Sore throat, fever x 2 days. MEDICAL HISTORY : Anemia. Smoker. SURGICAL HISTORY : Tubal ligation. Hysterectomy. ENCOUNTER: Initial ACUITY: 2 days PAIN SCORE: 10/10 LOCATION: throat FINDINGS: PA and lateral views of the chest demonstrate the lungs to be symmetrically aerated without evidence of mass, infiltrate or effusion. The cardiomediastinal contours are unremarkable. Osseous structure s are intact. CONCLUSION: No acute disease. Dimitri Dutta MD on August 27, 2017 at 10:28 Board Certified Radiologist. This report was verified electronically.
[2017-08-27] MEDS ORDERED: PRED20 PO (10:42)
[2017-08-27] MEDS ORDERED: PENI250S PO (10:42)
[2017-08-27] MEDS ORDERED: VENTAER INH (10:42)
[2017-08-27] MEDS ORDERED: DIFL150T PO (10:42)
== END 2017-08-27 10:50 | disposition home or self-care (01) ==
LOC: PHED 09:05 → PHEFT 10:50
DX: J02.9 Acute pharyngitis, unspecified (principal); J40 Bronchitis, not specified as acute or chronic; J98.01 Acute bronchospasm; F17.200 Nicotine dependence, unspecified, uncomplicated
CPT/HCPCS: 71046; 94640; 94664; 96372; 99283; J1100